=== PATIENT | female | born 1955 | race Two or more races ===

== ENCOUNTER 2018-12-03 14:22 | Outpatient (CLI) | payer OTHER | END 2018-12-03 14:33 | disposition home or self-care (01) | LOC: LAB 14:22 | DX: N30.00 Acute cystitis without hematuria (principal) ==

== ENCOUNTER 2021-10-22 09:43 | Day surgery (SDC) | payer OTHER | END 2021-10-22 14:50 | disposition home or self-care (01) | LOC: AMB-ENDOS 09:43 | PROVIDERS: ATTEND Surgery | DX: D12.3 Benign neoplasm of transverse colon (principal); N81.6 Rectocele; Z20.822 Contact with and (suspected) exposure to COVID-19 ==

== ENCOUNTER 2023-06-24 11:53 | Inpatient (IN) | payer OTHER ==
[~2023-06-24] VITALS: Ht 167.6 cm; Wt 81.6 kg
[2023-06-25] MEDS ORDERED: LEVO-T88 MCG PO (11:51)
[2023-06-25] MEDS ORDERED: LOSARTAN-HCTZ1 EAC2 PO (11:52)
[2023-06-25] MEDS ORDERED: HYDRALAZINE HCL25 MG PO (11:52)
[2023-06-25] MEDS ORDERED: CARVEDILOL12.5 MG (11:52)
[2023-06-25] MEDS ORDERED: CRESTOR5 MG PO (11:53)
[2023-06-30] MEDS ORDERED: BUSPIRONE HCL10 MG (13:15)
[2023-06-30] MEDS ORDERED: PANTOPRAZOLE SO40 MG (13:15)
[2023-06-30] MEDS ORDERED: MONTELUKAST SOD10 MG (13:15)
[2023-07-01] MEDS ORDERED: TRAM1TAB98 PO (08:14)
[2023-07-01] MEDS ORDERED: INTESTINEX680 M1 PO (08:14)
== END 2023-07-01 11:28 | disposition home or self-care (01) | DRG 748 ==
LOC: EDSTATUS 06-25 09:30 → O/R 06-30 08:26 → SURH 06-30 09:30 → SURG 06-30 18:09
PROVIDERS: ADMIT Surgery; ATTEND Surgery
PROC: 3E0T3BZ Introduction of Anesthetic Agent into Peripheral Nerves and Plexi, Percutaneous Approach (ICD-10-PCS; 2023-06-30)
PROC: 0JQC0ZZ Repair Pelvic Region Subcutaneous Tissue and Fascia, Open Approach (ICD-10-PCS; principal; 2023-06-30 15:30)
DX: N81.6 Rectocele (principal); Z20.822 Contact with and (suspected) exposure to COVID-19; K59.02 Outlet dysfunction constipation; N81.11 Cystocele, midline